=== PATIENT | female | born 1945 | race Two or more races ===

== ENCOUNTER → 2017-07-24 | Outpatient (CLI) | payer BC ==
[~2017-07-24] VITALS: Ht 165.1 cm; Wt 95.9 kg
[~2017-07-24] MED LIST: BENZOCAINE 20% ORAL SPR 60 ML CAN OROPHARYNG ONE; CETI-14; CITA20TA4 PO; DEXI60CA3; GABA300C5 PO; LEVO.075 PO; LIDOCAINE HCL 2% JELLY 5 ML SYRINGE TOPICAL ONE; LOSA50TA PO; METF500T PO; TRAM50TA PO; VALA500T PO
[2017-07-24 07:50] VITALS: BP 186/85; PULSE 72; RESP 18; TEMP 98.3; O2SAT 97
== END ==
LOC: HEND 06:54
PROVIDERS: ATTEND Hospitalist
DX: R13.10 Dysphagia, unspecified (principal)
CPT/HCPCS: 91010